=== PATIENT | male | born 1990 | race Caucasian/White ===

== ENCOUNTER 2017-02-07 14:44 | Emergency (ER) | payer OTHER ==
[~2017-02-07] VITALS: Ht 170.2 cm; Wt 69.0 kg
[2017-02-07 15:01] VITALS: Ht 170.2 cm; Wt 69.0 kg
[2017-02-07] MEDS ORDERED: LIDOCAINE 1% (MDV) 20 ML INJ SC ONE (16:30)
[2017-02-07] MEDS ORDERED: AZITHROMYCIN 250 MG TAB PO ONE (16:30)
[2017-02-07] MEDS ORDERED: CEFTRIAXONE 250 MG INJ IM ONE (16:30)
[2017-02-07 17:24] LABS: URINE BLOOD (Dip) POC Negative (NEGATIVE)
[2017-02-07 17:25] LABS: URINE BLOOD (Dip) POC Negative (NEGATIVE)
[2017-02-07] MEDS ORDERED: SULF1TAB31 PO (17:26)
[2017-02-07 17:42] VITALS: BP 140/67; PULSE 68; RESP 16; TEMP 98
--- NOTE | 2017-02-07 21:21 | ERD ---
ER Documentation Chief Complaint Date/Time DATE: 02/07/17 TIME: 21:18 Chief Complaint CAME IN DUE TO WHITE PENILE DRAINAGE WITH PAIN WITH URINATION HPI Patient is a 26-year-old male currently on Truvada for HIV prophylaxis, presenting to the emergency department with complaints of white penile drainage and dysuria for 2 days. Symptoms are intermittent. He reports multiple male sexual partners. He uses condoms sometimes. He does have past medical history of chlamydia and gonorrhea and the symptoms are similar to the past. Symptoms are mild in severity currently. Worse in the morning. He denies fevers, chills , or other symptoms currently. ROS All systems reviewed and are negative except as per history of present illness. Medications Home Meds Active Scripts Sulfamethoxazole/Trimethoprim* (Bactrim Ds* Tablet) 1 Each Tablet, 1 TAB PO BID , #6 TAB Prov:NOEMI CHRISTIANSON PA-C 02/07/17 PMhx/Soc Medical and Surgical Hx: pt denies Medical Hx, pt denies Surgical Hx Hx Alcohol Use: No Hx Substance Use: No Hx Tobacco Use: No Smoking Status: Unknown if ever smoked Physical Exam Vitals Vital Signs Date Time Temp Pulse Resp B/P Pulse Ox O2 Delivery O2 Flow Rate FiO2 02/07/17 17:42 98.0 68 16 140/67 100 Room Air 02/07/17 15:01 98.0 81 18 143/69 99 Physical Exam Const: Nontoxic, well-appearing male in no acute distress. Head: Atraumatic Eyes: Normal Conjunctiva ENT: Normal External Ears, Nose and Mouth. Skin: No petechiae or rashes Exam: Scrotum: Normal Testes/Epid: Non-tender w/ normal lie Lymph: No inguinal lymphadenopathy Discharge: Mild amount of white penile discharge noted. Ext: No cyanosis, or edema Neur: Awake and alert Psych: Normal Mood and Affect Results 24 hrs Laboratory Tests Test 02/07/17 17:31 Bedside Urine pH (LAB) 6.5 Bedside Urine Protein (LAB) Negative Bedside Urine Glucose (UA) Negative Bedside Urine Ketones (LAB) Trace Bedside Urine Blood Negative Bedside Urine Nitrite (LAB) Negative Bedside Urine Leukocyte Esterase (L 1+ Current Medications Medications (Trade) Dose Ordered Sig/Zackary Route PRN Reason Start Time Stop Time Status Last Admin Dose Admin Azithromycin (Zithromax) 1,000 mg ONCE ONCE PO 02/07/17 16:30 02/07/17 16:31 DC 02/07/17 17:20 Ceftriaxone Sodium (Rocephin) 250 mg ONCE ONCE IM 02/07/17 16:30 02/07/17 16:31 DC 02/07/17 17:16 Lidocaine (Xylocaine 1% (Mdv) 20 ml) 20 ml ONCE ONCE SC 02/07/17 16:30 02/07/17 16:31 DC 02/07/17 17:20 Procedures/MDM 26-year-old male presents to the emergency department with complaints of white penile discharge and dysuria. Urinalysis was concerning for mild, uncomplicated urinary tract infection with 1+ leukocyte. Patient was treated in the department prophylactically for chlamydia and gonorrhea with Rocephin and azithromycin. He was counseled on safe sex practices. Low suspicion for life-threatening pathology at time of discharge. He was given a prescription for Bactrim for his urinary tract infection. Strict ER return precautions were discussed. Close follow-up with the primary care physician was advised. Departure Diagnosis: Primary Impression: Penile discharge Additional Impression: Dysuria Condition: Fair Patient Instructions: Dysuria, What Are Sexually Transmitted Diseases (STDs)? Referrals: COMM[facility]ITY CLIN[facility] YOU HAVE RECEIVED A MEDICAL SCREENING EXAM AND THE RESULTS INDICATE THAT YOU DO NOT HAVE A CONDITION THAT REQUIRES URGENT TREATMENT IN THE EMERGENCY DEPARTMENT. FURTHER EVALUATION AND TREATMENT OF YOUR CONDITION CAN WAIT UNTIL YOU ARE SEEN IN YOUR DOCTORS OFFICE WITHIN THE NEXT 1-2 DAYS. IT IS YOUR RESPONSIBILITY TO MAKE AN APPOINTMENT FOR FOLOW-UP CARE. IF YOU HAVE A PRIMARY DOCTOR --you should call your primary doctor and schedule an appointment IF YOU DO NOT HAVE A PRIMARY DOCTOR YOU CAN CALL OUR PHYSICIAN REFERRAL HOTLINE AT IF YOU CAN NOT AFFORD TO SEE A PHYSICIAN YOU CAN CHOSE FROM THE FOLLOWING [facility] [address] [facility] [address] [facility]. [facility] [address] [facility]. [facility] [address] [facility]. [facility] [address] [facility] [facility]. [address] Additional Instructions: Call your primary care doctor TOMORROW for an appointment during the next 1-2 days.See the doctor sooner or return here if your condition worsens before your appointment time. NOEMI CHRISTIANSON PA-C Feb 07, 2017 21:21
== END 2017-02-07 17:41 | disposition home or self-care (01) ==
LOC: FTE 14:44
DX: R36.9 Urethral discharge, unspecified (principal); R30.0 Dysuria
CPT/HCPCS: 81003; 87591; 96372; J0696; Z7502; Z7610